=== PATIENT | male | born 1955 | race Caucasian/White ===

== ENCOUNTER 2019-10-15 15:14 | Outpatient (CLI) | payer OTHER, SELFPAY ==
--- NOTE | 2019-10-15 15:17 | CTR_ITS ---
PROCEDURE INFORMATION: Exam: CT Neck With Contrast Exam date and time: 10/15/2019 3:58 PM Age: 64 years old Clinical indication: Mass, lump, or swelling in neck; Prior surgery; Surgery date: 6+ months; Surgery type: Salivary gland removed; Additional info: Localized swelling, mass, lump neck TECHNIQUE: Imaging protocol: Computed tomography images of the neck with intravenous contrast. Total DLP: 867.52 mGy-cm Radiation optimization: All CT scans at this facility use at least one of these dose optimization techniques: automated exposure control; mA and/or kV adjustment per patient size (includes targeted exams where dose is matched to clinical indication); or iterative reconstruction. Contrast material: OMNI 300; Contrast volume: 95 ml; Contrast route: IV; COMPARISON: CT neck w con* [id number] 07/04/2019 9:01 AM FINDINGS: Nasopharynx: Unremarkable. Oropharynx: There are bilateral oral tonsillar calcifications. Hypopharynx: Unremarkable Larynx: There a suggestion of nodular thickening involving the epiglottic base and right posterior aryepiglottic fold, present previously. Direct inspection by ENT may be of benefit. Retropharyngeal space: Unremarkable. Submandibular/Parotid glands: There is been partial resection of the left inferior submandibular gland. There are postoperative changes, with focal thickening and surgical clips noted the operative site. There is a 4 mm sialolith present at the origin of the left submandibular duct with associated ductal dilatation within the residual gland. Thyroid: Normal. No enlarged or calcified nodules. Lymph nodes: Unremarkable. No lymphadenopathy. Trachea: Visualized trachea is unremarkable. Lungs: Unremarkable as visualized. Bones/joints: Unremarkable. No acute fracture. Soft tissues: Unremarkable. No significant soft tissue swelling. CT/CT neck w con* [id number] IMPRESSION: 1. Postoperative change reflecting partial resection of the left submandibular gland inferiorly. Residual sialolith at the origin of the left submandibular duct with ductal dilatation within the residual gland, unchanged. 2. Suggestion of focal thickening involving the base of the epiglottis and right posterior area glottic fold. Direct inspection by ENT may be of benefit. Radiation Dose CTDIVOL = (mGy): DLP = 867.52 (mGy-cm)
[2019-10-15 16:38] LABS: Blood Urea Nitrogen 25 mg/dL (8-23); Glomerular Filtration Rate 74.8 mL/min (90-130)
[2019-10-15] MEDS: iohexol 300 mg/mL 100 mL Btl IV (17:00)
== END 2019-10-15 15:15 | disposition home or self-care (01) ==
LOC: RAD 15:16
PROVIDERS: Family Provider Internal Medicine; PCP Internal Medicine; Visit Provider Specialist
DX: R22.1 Localized swelling, mass and lump, neck (principal); Z98.890 Other specified postprocedural states
CPT/HCPCS: 36415; 70491; 82565; 84520

== ENCOUNTER 2022-11-26 06:00 | Outpatient (RCR) | payer OTHER, SELFPAY | END 2022-12-24 23:59 | disposition home or self-care (01) | LOC: GOT 06:00 | PROVIDERS: Visit Provider Family Medicine | DX: M65.30 Trigger finger, unspecified finger (principal) | CPT/HCPCS: 97110; 97140; 97166 ==